=== PATIENT | female | born 1995 | race Caucasian/White ===

== ENCOUNTER 2017-01-04 14:26 | Emergency (ER) | payer OTHER ==
[~2017-01-04] VITALS: Ht 165.1 cm; Wt 90.9 kg
[2017-01-04 14:29] VITALS: BP 142/80; PULSE 104; RESP 20; O2SAT 98
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
[2017-01-04 16:25] VITALS: BP 136/88; PULSE 81; RESP 16; O2SAT 97
== END 2017-01-04 16:40 | disposition home or self-care (01) ==
LOC: SED 14:26
DX: M25.512 Pain in left shoulder (principal); V49.49XA Driver injured in collision with other motor vehicles in traffic accident, initial encounter; Y93.89 Activity, other specified; Y92.410 Unspecified street and highway as the place of occurrence of the external cause; Y99.8 Other external cause status; Z88.0 Allergy status to penicillin